=== PATIENT | male | born 1945 | race Native Hawaiian/Other Pacific Islander ===

== ENCOUNTER 2021-10-19 17:24 | Inpatient (IN) | payer OTHER, BC ==
[~2021-10-19] VITALS: Ht 175.3 cm; Wt 90.7 kg
[2021-10-19 20:12] VITALS: BP 136/59; TEMP 97.8
[2021-10-20 08:00] VITALS: BP 121/55; TEMP 97.8
[2021-10-20] MEDS ORDERED: CLON0.5T36 PO (08:06)
[2021-10-20] MEDS ORDERED: SCOP1.5D TD (08:10)
[2021-10-20] MEDS ORDERED: LIPITOR80 MG PO (08:11)
[2021-10-20] MEDS ORDERED: TAMSULOSIN0.4 MG PO (08:12)
[2021-10-20] MEDS ORDERED: BACLOFEN10 MG PO (08:12)
[2021-10-20] MEDS ORDERED: ONDANSETRON HYDR4 MG PO (08:13)
[2021-10-20] MEDS ORDERED: METO50TA27 PO (08:14)
[2021-10-20] MEDS ORDERED: PANTOPRAZOLE SO40 M1 PO (08:15)
[2021-10-20] MEDS ORDERED: SUCRALFATE1 GM PO (08:17)
[2021-10-20] MEDS ORDERED: AMLODIPINE BESYLATE PO (08:18)
[2021-10-20] MEDS ORDERED: LISI10TA11 PO (08:19)
[2021-10-20] MEDS ORDERED: VITAMIN D50000 UNIT PO (08:20)
[2021-10-20] MEDS ORDERED: TRAMADOL HYDROC50 MG PO (08:22)
[2021-10-20] MEDS ORDERED: CLOPIDOGREL75 MG PO (08:24)
[2021-10-20] MEDS ORDERED: RANOLAZINE ER1000 MG PO (08:24)
[2021-10-20] MEDS ORDERED: INSU100P SC (08:26)
[2021-10-20] MEDS ORDERED: ASPIRIN 8181 MG PO (08:28)
[2021-10-20 20:26] VITALS: BP 151/61; TEMP 98.3
[2021-10-21 08:00] VITALS: BP 140/77; TEMP 98.7
[2021-10-21 20:25] VITALS: BP 110/54; TEMP 99
[2021-10-22 06:14] LABS: PLATELET COUNT 145 K/uL (142-355)
[2021-10-22 10:19] LABS: POTASSIUM 3.7 mmol/L (3.6-5.2)
[2021-10-22 20:00] VITALS: BP 114/59; TEMP 98.7
[2021-10-23 09:46] VITALS: BP 103/47
[2021-10-23 09:47] VITALS: BP 118/51
[2021-10-23 09:48] VITALS: BP 102/53
[2021-10-23 20:00] VITALS: BP 123/61; TEMP 97.9
[2021-10-24] VITALS (8 sets, daily range): BP systolic 99–137; BP diastolic 45–68; TEMP 98.4
[2021-10-25 08:00] VITALS: BP 141/69; TEMP 98.2
[2021-10-25 20:26] VITALS: BP 127/63; TEMP 98.9
[2021-10-26 12:39] VITALS: BP 136/64
[2021-10-26 12:40] VITALS: BP 136/68
[2021-10-26 12:41] VITALS: BP 142/70
[2021-10-27 08:00] VITALS: BP 135/69; TEMP 98.3
[2021-10-28 08:00] VITALS: BP 152/69; TEMP 97.8
[2021-10-28 20:00] VITALS: BP 139/62; TEMP 97.5
[2021-10-29 08:00] VITALS: BP 133/63; TEMP 98
[2021-10-29 20:36] VITALS: BP 133/58; TEMP 98.7
[2021-10-30 08:00] VITALS: BP 117/60; TEMP 98.4
[2021-10-30 20:45] VITALS: BP 122/61; TEMP 99.3
[2021-10-31 16:01] LABS: PLATELET COUNT 117 K/uL (142-355)
[2021-10-31 20:00] VITALS: BP 131/59; TEMP 98.2
[2021-11-01 20:00] VITALS: BP 130/50; TEMP 98
[2021-11-02 08:30] VITALS: BP 129/59; TEMP 98.7
[2021-11-02 20:02] VITALS: BP 127/49; TEMP 99.2
[2021-11-03 08:00] VITALS: BP 113/53; TEMP 97.5
[2021-11-03 20:45] VITALS: BP 140/60; TEMP 98.8
[2021-11-04 20:38] VITALS: BP 145/57; TEMP 98.1
[2021-11-05 20:00] VITALS: BP 143/60; TEMP 98.5
[2021-11-06 20:00] VITALS: BP 133/67; TEMP 98.6
[2021-11-07 08:00] VITALS: BP 152/70; TEMP 98.3
[2021-11-07 20:19] VITALS: BP 144/68; TEMP 98.7
[2021-11-08] MEDS ORDERED: AMLODIPINE BESYLATE PO (00:28)
[2021-11-08 08:33] VITALS: BP 130/57; TEMP 98.3
[2021-11-08 20:18] VITALS: BP 142/55; TEMP 97.9
[2021-11-09 09:11] VITALS: BP 137/46; TEMP 97.9
[2021-11-09 20:00] VITALS: BP 142/55; TEMP 98.5
[2021-11-10 05:54] LABS: PLATELET COUNT 109 K/uL (142-355)
[2021-11-10 06:18] LABS: POTASSIUM 4.1 mmol/L (3.6-5.2)
[2021-11-10 08:00] VITALS: BP 140/61; TEMP 97.7
[2021-11-10 20:00] VITALS: BP 119/47; TEMP 98.2
[2021-11-11 08:00] VITALS: BP 144/63; TEMP 98.1
[2021-11-11 20:00] VITALS: BP 138/58; TEMP 98.3
[2021-11-12 08:00] VITALS: BP 140/59; TEMP 98.3
[2021-11-12 20:09] VITALS: BP 140/57; TEMP 98.4
[2021-11-13 08:00] VITALS: BP 159/71; TEMP 98.2
[2021-11-13 20:07] VITALS: BP 152/59; TEMP 98.5
[2021-11-14 20:00] VITALS: BP 160/71; TEMP 98.2
[2021-11-15 07:23] VITALS: BP 138/64; TEMP 98.3
[2021-11-15 20:00] VITALS: BP 149/62; TEMP 98.1
[2021-11-16 08:00] VITALS: BP 155/59; TEMP 98.2
[2021-11-16 20:08] VITALS: BP 141/56; TEMP 99.9
[2021-11-17 08:00] VITALS: BP 125/57; TEMP 98.3
[2021-11-17 20:03] VITALS: BP 153/51; TEMP 98.7
[2021-11-18 07:56] VITALS: BP 118/64; TEMP 98.5
[2021-11-18 19:52] VITALS: BP 138/59; TEMP 98.4
[2021-11-19 05:38] LABS: PLATELET COUNT 97 K/uL (142-355)
[2021-11-19 05:49] LABS: POTASSIUM 3.9 mmol/L (3.6-5.2)
[2021-11-19 08:00] VITALS: BP 135/61; TEMP 98.4
[2021-11-19] MEDS ORDERED: METO-837 PO (16:12)
[2021-11-19] MEDS ORDERED: CLON0.5T36 PO (16:14)
[2021-11-19 20:00] VITALS: BP 145/59; TEMP 99
== END 2021-11-20 17:52 | disposition home or self-care (01) | DRG 693 ==
LOC: SWING 17:24 → MED/SURG 19:02
PROVIDERS: ADMIT Internal Medicine; ATTEND Internal Medicine
DX: N13.39 Other hydronephrosis (principal); G93.41 Metabolic encephalopathy; E11.40 Type 2 diabetes mellitus with diabetic neuropathy, unspecified; R13.11 Dysphagia, oral phase; R47.1 Dysarthria and anarthria; R26.81 Unsteadiness on feet; M62.81 Muscle weakness (generalized); Z74.1 Need for assistance with personal care; D64.9 Anemia, unspecified; I25.10 Atherosclerotic heart disease of native coronary artery without angina pectoris; G89.4 Chronic pain syndrome; R42 Dizziness and giddiness; G24.01 Drug induced subacute dyskinesia; I10 Essential (primary) hypertension; R11.0 Nausea; R53.81 Other malaise; Z95.1 Presence of aortocoronary bypass graft; Z95.5 Presence of coronary angioplasty implant and graft; R29.6 Repeated falls; R33.9 Retention of urine, unspecified
CPT/HCPCS: 36415; 80053; 81000; 82533; 85027; 87081; J2550